=== PATIENT | female | born 1995 | race American Indian/Alaskan Native ===

== ENCOUNTER 2021-12-19 12:54 | Inpatient (IN) | payer MEDICAID ==
[2021-12-19] MEDS ORDERED: ACETAMINOPHEN 325 MG TAB PO PRN (13:25)
[2021-12-19] MEDS: LACTATED RINGERS 1,000 ML IV SCH ×3 (13:44→23:47)
[2021-12-19 13:48] LABS: Bilirubin,Urine NEG (Negative); Blood,Urine LG (Negative); Color,Urine Amber (Yellow); Mucus,Urine FEW /HPF
[2021-12-19 14:03] LABS: Hematocrit 35.1 % (30.3-42.9); Hemoglobin 12.1 gm/dl (10.1-14.3); Mean Corpuscular HGB Conc 35 % (30-34); Mean Corpuscular Volume 98 fl (79-97); Platelet Count 153 K/mm3 (140-440); Red Blood Count 3.58 M/mm3 (3.65-5.03); Red Cell Distribution Width 12.5 % (13.2-15.2)
[2021-12-19] MEDS: BUTORPHANOL 2 MG/1 ML INJ IV PRN ×3 (14:45→20:13)
[2021-12-19] MEDS ORDERED: BETAMET ACET/BETAMET NA PH 6 MG/ML INJ 5 ML MDV IM ONE (15:00)
[2021-12-19] MEDS ORDERED: AMPICILLIN 2 GM in SODIUM CHLORIDE 0.9% 50 ML IV ONE (17:00)
[2021-12-19] MEDS ORDERED: AMPICILLIN/NS 2 GM/100 ML 2 GM/100 ML BAG IV ONE (17:00)
[2021-12-19] MEDS ORDERED: BUTORPHANOL 2 MG/1 ML INJ ONE (20:11)
[2021-12-19] MEDS ORDERED: AMPICILLIN 1 GM in SODIUM CHLORIDE 0.9% 50 ML IV ONE (21:00)
--- NOTE | 2021-12-19 21:04 | Ultrasound Report ---
ULTRASOUND OBSTETRIC LIMITED ULTRASOUND BIOPHYSICAL PROFILE INDICATION / CLINICAL INFORMATION: labor. Clinical Gestational Age (GA) in weeks, days: 33, 0 TECHNIQUE: Transabdominal. COMPARISON: None available. FINDINGS: BREATHING MOVEMENT = 2 GROSS BODY MOVEMENT = 2 TONE = 2 QUALITATIVE AMNIOTIC FLUID VOLUME = 2 TOTAL BIOPHYSICAL SCORE = 8/8 HEART RATE (beats per minute): 138 AMNIOTIC FLUID INDEX (cm) = 13.9 (normal = 7-24 cm) PRESENTATION: Cephalic. Biparietal Diameter = 8.3 cm = 33, 3 weeks, days Head Circumference = 28.4 cm = 31, 1 weeks, days Abdominal Circumference = 29.5 cm = 33, 3 weeks, days Femur Length = 5.7 cm = 29, 6 weeks, days Average Ultrasound Age (AUA) = 3 2, 0 weeks, days Estimated weight is 1920 g ADDITIONAL FINDINGS: Anterior grade 1 placenta. IMPRESSION: 1. Biophysical Score = 8/8 single live intrauterine gestation with an average gestational age o f 32 weeks 0 days. Signer Name: Jacinto Miller DO Signed: 12/19/2021 9:00 PM Workstation Name: [id number]
[2021-12-19] MEDS: AMPICILLIN/NS 1 GM/50 ML 1 GM/50 ML BAG IV SCH (21:06)
[2021-12-19] MEDS: fentaNYL 100 MCG/2 ML INJ IV PRN (23:32)
[2021-12-20] MEDS: AMPICILLIN/NS 1 GM/50 ML 1 GM/50 ML BAG IV SCH ×6 (01:01→22:01)
[2021-12-20] MEDS: fentaNYL 100 MCG/2 ML INJ IV PRN ×5 (04:15→19:42)
[2021-12-20] MEDS: LACTATED RINGERS 1,000 ML IV SCH ×2 (06:20→19:35)
--- NOTE | 2021-12-20 08:10 | History and Physical Report ---
History of Present Illness Date of examination: 12/20/21 Date of admission: 12/19/21 13:25 Chief complaint: Contractions at 33+2wks. History of present illness: all vaginal deliveries before 35 wks. 33+3wks, ANKITA 02/04/22. Past History Past Medical History: no pertinent history Past Surgical History: no surgical history - Obstetrical History Expected Date of Delivery: 02/04/22 Actual Gestation: 33 Week(s) 3 Day(s) : 5 Para: 3 Spontaneous Abortions: 1 Medications and Allergies Allergies Allergy/AdvReac Type Severity Reaction Status Date / Time No Known Allergies Allergy Unverified 12/19/21 13:06 Home Medications Medication Instructions Recorded Confirmed Last Taken Type No.137/Iron/Folic Acd 1 tab PO DAILY 12/19/21 12/19/21 12/18/21 History [[facility] Vit[facility] Tablet] Active Meds: Active Medications Acetaminophen (Acetaminophen 325 Mg Tab) 650 mg PO Q4H PRN PRN Reason: Pain, Mild (1-3) Butorphanol Tartrate (Butorphanol 2 Mg/1 Ml Inj) 1 mg IV Q2H PRN PRN Reason: Pain, Moderate(4-6) LABOR PAIN Last Admin: 12/19/21 20:13 Dose: 1 mg Fentanyl (Fentanyl 100 Mcg/2 Ml Inj) 100 mcg IV Q2H PRN PRN Reason: Pain,Severe (7-10) LABOR PAIN Last Admin: 12/20/21 04:15 Dose: 100 mcg Lactated Ringer's (Lactated Ringers) 1,000 mls @ 125 mls/hr IV DIRECT [facility] Last Admin: 12/20/21 06:20 Dose: 125 mls/hr Ampicillin Sodium (Ampicillin/Ns 1 Gm/50 Ml) 1 gm in 50 mls @ 100 mls/hr IV Q4H [facility] Last Admin: 12/20/21 05:02 Dose: 100 mls/hr Review of Systems All systems: negative Constitutional: no fever Respiratory: no cough Breasts: deferred Gastrointestinal: abdominal pain Genitourinary: contractions - Vital Signs Vital signs: Vital Signs Pulse BP 83 104/66 12/19/21 13:12 12/19/21 13:12 Temp Pulse Resp BP Pulse Ox 98.5 F 78 18 100/69 97 12/20/21 03:00 12/20/21 07:56 12/20/21 05:15 12/19/21 23:33 12/20/21 07:56 - Physical Exam Breasts: Positive: deferred Lungs: Positive: Normal air movement Abdomen: Positive: normal appearance, soft, distention Uterus: Positive: enlarged, normal contour Deep Tendon Reflex Grade: Normal +2 - Obstetrical FHR: auscultation normal Uterine Contraction Monitor Mode: Palpation Results Result Diagrams: 12/19/21 13:30 Abnormal lab results 12/19/21 Range/Units 13:30 RBC 3.58 L (3.65-5.03) M/mm3 MCV 98 H (79-97) fl MCH 34 H (28-32) pg MCHC 35 H (30-34) % RDW 12.5 L (13.2-15.2) % All other labs normal. Assessment and Plan - Patient Problems (1) uterine contractions in third trimester, antepartum Current Visit: Yes Status: Acute Plan to address problem: Given steroids,ampicillin. MFM and Peds aware. Continuing on observation. (2) with 33 completed weeks gestation Current Visit: Yes Status: Acute
[2021-12-20 12:57] LABS: Amphetamine Screen,Urine Negative; Benzodiazepines Screen,Urine Negative; Cocaine Screen,Urine Negative; Methadone Screen,Urine Negative; Opiate Screen,Urine Negative
[2021-12-20 13:11] LABS: Cannabinoid Screen,Urine Positive
[2021-12-20] MEDS ORDERED: BETAMET ACET/BETAMET NA PH 6 MG/ML INJ 5 ML MDV IM ONE (14:19)
[2021-12-20] MEDS ORDERED: TERBUTALINE 1 MG/1 ML INJ ONE (15:59)
[2021-12-20] MEDS ORDERED: TERBUTALINE 1 MG/1 ML INJ SUB-Q ONE (16:02)
[2021-12-20] MEDS ORDERED: MAGNESIUM SULFATE 4 GM/100 ML BAG IV ONE (16:22)
--- NOTE | 2021-12-20 16:29 | Event Note ---
Date: 12/20/21 Patient started having contractions again. Patient reports she is feeling some pain with contractions. Category 1 FHR tracing. Patient has received IV fluid bolus, 2 doses of Celestone, and terbutaline SQ. Magnesium Sulfate ordered for neuroprotection. Patient is also receiving IV ampicillin. SVE /-3/cephalic. Consulted with Dr. Monsivais re: this patient and interventions taken; Dr. Monsivais states she is in agreement with POC. Spoke with patient re: plan of care.
[2021-12-20] MEDS ORDERED: ONDANSETRON 4 MG/2 ML INJ ONE (16:46)
[2021-12-20] MEDS ORDERED: MAGNESIUM SULFATE 40GM/1000ML 40 GM/1,000 ML BAG IV SCH (17:00)
[2021-12-20] MEDS: valACYclovir 500 MG TAB PO SCH (22:08)
[2021-12-21] MEDS: AMPICILLIN/NS 1 GM/50 ML 1 GM/50 ML BAG IV SCH ×5 (01:22→20:00)
[2021-12-21] MEDS: fentaNYL 100 MCG/2 ML INJ IV PRN ×4 (04:16→23:33)
[2021-12-21] MEDS: LACTATED RINGERS 1,000 ML IV SCH (05:22)
--- NOTE | 2021-12-21 07:47 | Progress Note ---
Subjective - Subjective Date of service: 12/21/21 Interval history: PTL Plan for DC magnesium sulfate and monitor for progression of labor: pt continues to break thru [employer] FHT Cat 1 Continue abx for PTL/GBS Maternal/ well being reassuring overall Tamra Seals MD Objective - Vital Signs Vital Signs: Vital Signs - 12hr 12/20/21 12/20/21 12/20/21 19:49 19:54 19:59 Temperature Pulse Rate 121 H 98 H 109 H Blood Pressure O2 Sat by Pulse 96 96 98 Oximetry 12/20/21 12/20/21 12/20/21 20:04 20:09 20:12 Temperature Pulse Rate 105 H 109 H 107 H Blood Pressure 98/57 O2 Sat by Pulse 96 96 87 Oximetry 12/20/21 12/20/21 12/20/21 20:14 20:19 20:20 Temperature Pulse Rate 102 H 106 H 99 H Blood Pressure O2 Sat by Pulse 98 96 94 Oximetry 12/20/21 12/20/21 12/20/21 20:24 20:27 20:29 Temperature Pulse Rate 97 H 95 H 103 H Blood Pressure O2 Sat by Pulse 94 94 97 Oximetry 12/20/21 12/20/21 12/20/21 20:34 20:38 20:39 Temperature Pulse Rate 95 H 104 H 104 H Blood Pressure O2 Sat by Pulse 96 93 98 Oximetry 12/20/21 12/20/21 12/20/21 20:44 20:49 20:54 Temperature Pulse Rate 86 95 H 98 H Blood Pressure O2 Sat by Pulse 97 96 96 Oximetry 12/20/21 12/20/21 12/20/21 20:56 21:00 21:01 Temperature Pulse Rate 105 H 96 H 98 H Blood Pressure O2 Sat by Pulse 93 93 93 Oximetry 12/20/21 12/20/21 12/20/21 21:05 21:10 21:13 Temperature Pulse Rate 93 H 81 85 Blood Pressure 90/54 O2 Sat by Pulse 99 99 Oximetry 12/20/21 12/20/21 12/20/21 21:15 21:20 21:24 Temperature Pulse Rate 100 H 117 H 80 Blood Pressure O2 Sat by Pulse 99 70 L 0 L Oximetry 12/20/21 12/20/21 12/20/21 21:26 21:32 21:37 Temperature Pulse Rate 89 67 Blood Pressure O2 Sat by Pulse 60 L 93 90 Oximetry 12/20/21 12/20/21 12/20/21 21:38 21:43 21:48 Temperature Pulse Rate 26 L 91 H 99 H Blood Pressure O2 Sat by Pulse 100 99 96 Oximetry 12/20/21 12/20/21 12/20/21 21:53 21:58 22:03 Temperature Pulse Rate 103 H 104 H 107 H Blood Pressure 109/62 O2 Sat by Pulse 97 96 96 Oximetry 12/20/21 12/20/21 12/20/21 22:08 22:13 22:18 Temperature Pulse Rate 114 H 110 H 115 H Blood Pressure O2 Sat by Pulse 98 96 96 Oximetry 12/20/21 12/21/21 12/21/21 23:03 00:03 01:14 Temperature Pulse Rate 126 H 90 78 Blood Pressure 115/82 88/54 94/51 O2 Sat by Pulse Oximetry 12/21/21 12/21/21 12/21/21 01:21 02:03 03:03 Temperature 98.7 F Pulse Rate 93 H 87 85 Blood Pressure 96/58 101/62 116/76 O2 Sat by Pulse Oximetry 12/21/21 12/21/21 12/21/21 04:08 04:35 05:04 Temperature Pulse Rate 103 H 88 85 Blood Pressure 100/58 101/61 103/57 O2 Sat by Pulse Oximetry 12/21/21 12/21/21 12/21/21 05:25 06:03 07:02 Temperature 98.8 F Pulse Rate 77 89 Blood Pressure 94/55 O2 Sat by Pulse 98 Oximetry 12/21/21 12/21/21 12/21/21 07:03 07:07 07:12 Temperature Pulse Rate 85 83 87 Blood Pressure 102/58 O2 Sat by Pulse 96 97 Oximetry 12/21/21 12/21/21 12/21/21 07:17 07:22 07:27 Temperature Pulse Rate 89 90 91 H Blood Pressure O2 Sat by Pulse 96 96 96 Oximetry 12/21/21 12/21/21 12/21/21 07:32 07:37 07:42 Temperature Pulse Rate 90 89 102 H Blood Pressure O2 Sat by Pulse 96 95 97 Oximetry - Labs Labs: Abnormal Labs 12/19/21 12/20/21 13:30 23:24 RBC 3.58 L MCV 98 H MCH 34 H MCHC 35 H RDW 12.5 L Magnesium 3.50 H Laboratory Results - last 24 hr 12/20/21 12/20/21 12/20/21 09:27 23:24 Unknown Magnesium 3.50 H Urine Opiates Screen Negative Urine Methadone Screen Negative Ur Barbiturates Screen Negative Ur Phencyclidine Scrn Negative Ur Amphetamines Screen Negative U Benzodiazepines Scrn Negative Urine Cocaine Screen Negative U Marijuana (THC) Screen Positive Drugs of Abuse Note Disclamer SARS-CoV-2 (PCR) Negative
[2021-12-21] MEDS: valACYclovir 500 MG TAB PO SCH (10:28)
--- NOTE | 2021-12-21 10:41 | Progress Note ---
Assessment and Plan A: IUP @ 33/3/7 Weeks Category I Tracing PTL GBS Unknown P: S/P Magnesium Sulfate and Betamethasome Continue GBS prophylaxis Dr. Seals managing Plan of Care Subjective - Subjective Date of service: 12/21/21 Patient reports: movement normal, contractions (States CTX are mild and irregular) Objective - Vital Signs Vital Signs: Vital Signs - 12hr 12/20/21 12/21/21 12/21/21 23:03 00:03 01:14 Temperature Pulse Rate 126 H 90 78 Blood Pressure 115/82 88/54 94/51 O2 Sat by Pulse Oximetry O2 Sat by Pulse Oximetry [ Throughout] 12/21/21 12/21/21 12/21/21 01:21 02:03 03:03 Temperature 98.7 F Pulse Rate 93 H 87 85 Blood Pressure 96/58 101/62 116/76 O2 Sat by Pulse Oximetry O2 Sat by Pulse Oximetry [ Throughout] 12/21/21 12/21/21 12/21/21 04:08 04:35 05:04 Temperature Pulse Rate 103 H 88 85 Blood Pressure 100/58 101/61 103/57 O2 Sat by Pulse Oximetry O2 Sat by Pulse Oximetry [ Throughout] 12/21/21 12/21/21 12/21/21 05:25 06:03 07:02 Temperature 98.8 F Pulse Rate 77 89 Blood Pressure 94/55 O2 Sat by Pulse 98 Oximetry O2 Sat by Pulse Oximetry [ Throughout] 12/21/21 12/21/21 12/21/21 07:03 07:07 07:12 Temperature Pulse Rate 85 83 87 Blood Pressure 102/58 O2 Sat by Pulse 96 97 Oximetry O2 Sat by Pulse Oximetry [ Throughout] 12/21/21 12/21/21 12/21/21 07:17 07:22 07:27 Temperature Pulse Rate 89 90 91 H Blood Pressure O2 Sat by Pulse 96 96 96 Oximetry O2 Sat by Pulse Oximetry [ Throughout] 12/21/21 12/21/21 12/21/21 07:30 07:32 07:37 Temperature Pulse Rate 90 89 Blood Pressure O2 Sat by Pulse 96 95 Oximetry O2 Sat by Pulse 98 Oximetry [ Throughout] 12/21/21 12/21/21 12/21/21 07:42 07:47 07:58 Temperature Pulse Rate 102 H 95 H 92 H Blood Pressure O2 Sat by Pulse 97 97 92 Oximetry O2 Sat by Pulse Oximetry [ Throughout] 12/21/21 12/21/21 12/21/21 08:03 08:04 08:08 Temperature 98.7 F Pulse Rate 94 H 100 H Blood Pressure 111/76 O2 Sat by Pulse 98 97 Oximetry O2 Sat by Pulse Oximetry [ Throughout] 12/21/21 12/21/21 12/21/21 08:13 08:18 08:23 Temperature Pulse Rate 92 H 95 H 90 Blood Pressure O2 Sat by Pulse 99 99 98 Oximetry O2 Sat by Pulse Oximetry [ Throughout] 12/21/21 12/21/21 12/21/21 08:28 08:33 08:38 Temperature Pulse Rate 86 90 108 H Blood Pressure O2 Sat by Pulse 97 97 98 Oximetry O2 Sat by Pulse Oximetry [ Throughout] 12/21/21 12/21/21 12/21/21 08:43 08:48 08:53 Temperature Pulse Rate 99 H 82 106 H Blood Pressure O2 Sat by Pulse 99 98 97 Oximetry O2 Sat by Pulse Oximetry [ Throughout] 12/21/21 12/21/21 12/21/21 08:58 09:05 09:08 Temperature Pulse Rate 83 90 86 Blood Pressure 125/58 O2 Sat by Pulse 99 95 Oximetry O2 Sat by Pulse Oximetry [ Throughout] 12/21/21 12/21/21 12/21/21 09:14 09:19 09:24 Temperature Pulse Rate 89 79 91 H Blood Pressure O2 Sat by Pulse 98 98 98 Oximetry O2 Sat by Pulse Oximetry [ Throughout] 12/21/21 12/21/21 12/21/21 09:29 09:34 09:39 Temperature Pulse Rate 94 H 89 85 Blood Pressure O2 Sat by Pulse 98 99 99 Oximetry O2 Sat by Pulse Oximetry [ Throughout] 12/21/21 12/21/21 12/21/21 09:44 09:49 09:54 Temperature Pulse Rate 89 102 H 96 H Blood Pressure O2 Sat by Pulse 98 98 98 Oximetry O2 Sat by Pulse Oximetry [ Throughout] 12/21/21 12/21/21 12/21/21 09:59 10:03 10:04 Temperature Pulse Rate 97 H 98 H 103 H Blood Pressure 115/57 O2 Sat by Pulse 98 97 Oximetry O2 Sat by Pulse Oximetry [ Throughout] 12/21/21 12/21/21 12/21/21 10:09 10:14 10:19 Temperature Pulse Rate 112 H 93 H 101 H Blood Pressure O2 Sat by Pulse 97 97 98 Oximetry O2 Sat by Pulse Oximetry [ Throughout] 12/21/21 12/21/21 12/21/21 10:24 10:29 10:34 Temperature Pulse Rate 116 H 81 93 H Blood Pressure O2 Sat by Pulse 100 99 98 Oximetry O2 Sat by Pulse Oximetry [ Throughout] - Exam Breasts: normal Cardiovascular: Regular rate Lungs: Normal air movement Abdomen: Present: normal appearance, soft Uterus: Present: normal, firm, fundal height above umbilicus FHR: category 1 Uterine Contraction Monitor Mode: External Cervical Dilatation: 3 (intact) Cervical Effacement Percentage: 70 station: -2 Uterine Contraction Pattern: Irregular Uterine Tone Measurement Phase: Resting Uterine Contraction Intensity: Mild Extremities: normal - Labs Labs: Abnormal Labs 12/19/21 12/20/21 12/21/21 13:30 23:24 07:43 RBC 3.58 L MCV 98 H MCH 34 H MCHC 35 H RDW 12.5 L Magnesium 3.50 H 3.60 H Laboratory Results - last 24 hr 12/20/21 12/20/21 12/21/21 23:24 Unknown 07:43 Magnesium 3.50 H 3.60 H Urine Opiates Screen Negative Urine Methadone Screen Negative Ur Barbiturates Screen Negative Ur Phencyclidine Scrn Negative Ur Amphetamines Screen Negative U Benzodiazepines Scrn Negative Urine Cocaine Screen Negative U Marijuana (THC) Screen Positive Drugs of Abuse Note Disclamer
[2021-12-21] MEDS ORDERED: NIFEdipine XL 30 MG TAB PO SCH (15:00)
[2021-12-21] MEDS ORDERED: NIFEdipine*For Tocolysis only* 10 MG CAPSULE PO SCH (15:00)
[2021-12-22 09:05] VITALS: BP 104/59
--- NOTE | 2021-12-22 09:19 | Progress Note ---
Subjective - Subjective Date of service: 12/22/21 Interval history: PTL no cervical change overnight patient desires to be discharged no clinical indication to remain inpatient PTL precautions DC home follow up in one week Tamra Seals MD Patient reports: movement normal, contractions (States CTX are mild and irregular) Objective - Vital Signs Vital Signs: Vital Signs - 12hr 12/21/21 12/21/21 12/21/21 21:20 21:25 21:30 Temperature Pulse Rate 105 H 78 74 Blood Pressure Blood Pressure [Right] O2 Sat by Pulse 98 99 100 Oximetry O2 Sat by Pulse Oximetry [ Throughout] 12/21/21 12/21/21 12/21/21 21:35 21:40 21:45 Temperature Pulse Rate 73 69 61 Blood Pressure Blood Pressure [Right] O2 Sat by Pulse 99 99 100 Oximetry O2 Sat by Pulse Oximetry [ Throughout] 12/21/21 12/21/21 12/21/21 21:50 21:55 22:00 Temperature Pulse Rate 86 66 72 Blood Pressure Blood Pressure [Right] O2 Sat by Pulse 99 98 98 Oximetry O2 Sat by Pulse Oximetry [ Throughout] 12/21/21 12/21/21 12/21/21 22:03 22:05 22:10 Temperature Pulse Rate 67 76 80 Blood Pressure 83/53 Blood Pressure [Right] O2 Sat by Pulse 97 99 Oximetry O2 Sat by Pulse Oximetry [ Throughout] 12/21/21 12/21/21 12/21/21 22:15 22:20 22:25 Temperature Pulse Rate 92 H 80 77 Blood Pressure Blood Pressure [Right] O2 Sat by Pulse 98 98 99 Oximetry O2 Sat by Pulse Oximetry [ Throughout] 12/21/21 12/21/21 12/21/21 22:30 22:35 22:39 Temperature Pulse Rate 79 71 94 H Blood Pressure Blood Pressure [Right] O2 Sat by Pulse 99 99 89 Oximetry O2 Sat by Pulse Oximetry [ Throughout] 12/21/21 12/21/21 12/21/21 22:49 22:54 22:59 Temperature Pulse Rate 74 89 99 H Blood Pressure Blood Pressure [Right] O2 Sat by Pulse 100 99 99 Oximetry O2 Sat by Pulse Oximetry [ Throughout] 12/21/21 12/21/21 12/21/21 23:04 23:09 23:21 Temperature Pulse Rate 77 71 62 Blood Pressure 104/65 Blood Pressure [Right] O2 Sat by Pulse 99 99 98 Oximetry O2 Sat by Pulse Oximetry [ Throughout] 12/21/21 12/21/21 12/21/21 23:26 23:31 23:36 Temperature Pulse Rate 68 67 72 Blood Pressure Blood Pressure [Right] O2 Sat by Pulse 99 99 99 Oximetry O2 Sat by Pulse Oximetry [ Throughout] 12/21/21 12/21/21 12/21/21 23:41 23:46 23:51 Temperature Pulse Rate 73 65 73 Blood Pressure Blood Pressure [Right] O2 Sat by Pulse 97 99 99 Oximetry O2 Sat by Pulse Oximetry [ Throughout] 12/21/21 12/22/21 12/22/21 23:56 00:01 00:06 Temperature Pulse Rate 65 66 69 Blood Pressure Blood Pressure [Right] O2 Sat by Pulse 98 98 99 Oximetry O2 Sat by Pulse Oximetry [ Throughout] 12/22/21 12/22/21 12/22/21 00:11 00:16 00:21 Temperature Pulse Rate 80 69 68 Blood Pressure Blood Pressure [Right] O2 Sat by Pulse 98 99 99 Oximetry O2 Sat by Pulse Oximetry [ Throughout] 12/22/21 12/22/21 12/22/21 00:26 00:43 00:48 Temperature Pulse Rate 73 64 65 Blood Pressure Blood Pressure [Right] O2 Sat by Pulse 100 100 99 Oximetry O2 Sat by Pulse Oximetry [ Throughout] 12/22/21 12/22/21 12/22/21 00:53 00:58 01:03 Temperature Pulse Rate 68 65 65 Blood Pressure Blood Pressure [Right] O2 Sat by Pulse 98 98 98 Oximetry O2 Sat by Pulse Oximetry [ Throughout] 12/22/21 12/22/21 12/22/21 01:08 01:13 01:18 Temperature Pulse Rate 62 62 66 Blood Pressure Blood Pressure [Right] O2 Sat by Pulse 97 98 99 Oximetry O2 Sat by Pulse Oximetry [ Throughout] 12/22/21 12/22/21 12/22/21 01:23 01:28 01:33 Temperature Pulse Rate 68 73 65 Blood Pressure Blood Pressure [Right] O2 Sat by Pulse 98 100 99 Oximetry O2 Sat by Pulse Oximetry [ Throughout] 12/22/21 12/22/21 12/22/21 01:38 01:43 01:48 Temperature Pulse Rate 63 64 65 Blood Pressure Blood Pressure [Right] O2 Sat by Pulse 99 100 100 Oximetry O2 Sat by Pulse Oximetry [ Throughout] 12/22/21 12/22/21 12/22/21 01:53 01:58 02:03 Temperature Pulse Rate 62 72 79 Blood Pressure Blood Pressure [Right] O2 Sat by Pulse 99 99 99 Oximetry O2 Sat by Pulse Oximetry [ Throughout] 12/22/21 12/22/21 12/22/21 02:08 02:13 02:18 Temperature Pulse Rate 80 87 89 Blood Pressure Blood Pressure [Right] O2 Sat by Pulse 99 100 99 Oximetry O2 Sat by Pulse Oximetry [ Throughout] 12/22/21 12/22/21 12/22/21 02:23 02:28 02:33 Temperature Pulse Rate 81 88 79 Blood Pressure Blood Pressure [Right] O2 Sat by Pulse 99 99 99 Oximetry O2 Sat by Pulse Oximetry [ Throughout] 12/22/21 12/22/21 12/22/21 02:38 02:43 02:48 Temperature Pulse Rate 75 81 75 Blood Pressure Blood Pressure [Right] O2 Sat by Pulse 99 99 99 Oximetry O2 Sat by Pulse Oximetry [ Throughout] 12/22/21 12/22/21 12/22/21 02:53 02:58 03:03 Temperature Pulse Rate 68 58 L 66 Blood Pressure Blood Pressure [Right] O2 Sat by Pulse 99 100 98 Oximetry O2 Sat by Pulse Oximetry [ Throughout] 12/22/21 12/22/21 12/22/21 03:08 03:13 03:18 Temperature Pulse Rate 67 71 72 Blood Pressure Blood Pressure [Right] O2 Sat by Pulse 98 98 99 Oximetry O2 Sat by Pulse Oximetry [ Throughout] 12/22/21 12/22/21 12/22/21 03:23 03:28 03:33 Temperature Pulse Rate 65 70 74 Blood Pressure Blood Pressure [Right] O2 Sat by Pulse 99 99 99 Oximetry O2 Sat by Pulse Oximetry [ Throughout] 12/22/21 12/22/21 12/22/21 03:38 04:40 05:03 Temperature Pulse Rate 68 65 69 Blood Pressure 88/51 84/54 Blood Pressure [Right] O2 Sat by Pulse 98 Oximetry O2 Sat by Pulse Oximetry [ Throughout] 12/22/21 12/22/21 12/22/21 06:03 07:03 08:04 Temperature Pulse Rate 68 72 77 Blood Pressure 103/57 101/52 93/52 Blood Pressure [Right] O2 Sat by Pulse Oximetry O2 Sat by Pulse Oximetry [ Throughout] 12/22/21 12/22/21 08:10 09:04 Temperature 99.3 F Pulse Rate 77 72 Blood Pressure 104/59 Blood Pressure 93/52 [Right] O2 Sat by Pulse Oximetry O2 Sat by Pulse 99 Oximetry [ Throughout] - Labs Labs: Abnormal Labs 12/19/21 12/20/21 12/21/21 13:30 23:24 07:43 RBC 3.58 L MCV 98 H MCH 34 H MCHC 35 H RDW 12.5 L Magnesium 3.50 H 3.60 H
--- NOTE | 2021-12-22 09:20 | Discharge Summary ---
Providers - Providers Date of Admission: 12/19/21 13:25 Date of discharge: 12/22/21 Attending physician: CARO MARTIN MD 12/20/21 16:14 Consult to Case Management [CONS] Routine Services Needed at Discharge: Criminal Records Technician Comment:: Drug screen positive (marijuana) Primary care physician: AQUILES LEVINE Hospitalization Reason for admission: labor Condition at discharge: Stable Disposition: 01 HOME / SELF CARE / HOMELESS Plan - Discharge Medications Prescriptions: NIFEdipine XL [Procardia Xl] 10 mg PO Q8HR #90 tab - Provider Discharge Summary Activity: no sex for 6 weeks Additional instructions: [] Smoking cessation referral if applicable(refer to patient education folder for contact #) [] Refer to [facility]'s [facility] Booklet Call your doctor immediately for: * Fever > 100.5 * Heavy vaginal bleeding ( >1 pad per hour) * Severe persistent headache * Shortness of breath * Reddened, hot, painful area to leg or breast * Drainage or odor from incision. * Keep incision clean and dry at all times and follow doctor's instructions regarding bathing/showering - Follow up plan Follow up: AQUILES LEVINE MD [Primary Care Provider] - 7 Days
[2021-12-22] MEDS: valACYclovir 500 MG TAB PO SCH (09:45)
== END 2021-12-22 10:05 | disposition home or self-care (01) | DRG 778 ==
LOC: TRG 12:54 → APU 12:55 → OBSVTOIN 13:25 → TRG 13:42 → LD 14:08
PROVIDERS: ADMIT Obstetrics & Gynecology; ATTEND Obstetrics & Gynecology
DX: O60.03 Preterm labor without delivery, third trimester (principal); O99.323 Drug use complicating pregnancy, third trimester; Z3A.33 33 weeks gestation of pregnancy; F12.90 Cannabis use, unspecified, uncomplicated; Z20.822 Contact with and (suspected) exposure to COVID-19
CPT/HCPCS: 36415; 76805; 76816; 76819; 80307; 81001; 83735; 85027; 86592; 86850; 86900; 86901; 87086; 87116; 87591; G0378; J0290; J0595; J0702; J3010; J3105; J3475; J7120; U0003

== ENCOUNTER 2021-12-26 17:03 | Outpatient (CLI) | payer MEDICAID ==
[2021-12-26 17:21] VITALS: BP 113/71
[2021-12-26] MEDS ORDERED: LACTATED RINGERS 1,000 ML IV ONE (17:44)
== END 2021-12-26 19:00 | disposition home or self-care (01) ==
LOC: TRG 17:03 → APU 17:04 → TRG 19:00
PROVIDERS: ATTEND Obstetrics & Gynecology
DX: O62.9 Abnormality of forces of labor, unspecified (principal); Z3A.34 34 weeks gestation of pregnancy
CPT/HCPCS: 59025; 96360; J7120